=== PATIENT | female | born 1960 | race Caucasian/White ===

== ENCOUNTER → 2016-05-22 | Outpatient (CLI) | payer BC ==
[2016-05-22 16:45] VITALS: BP 143/80
== END ==
LOC: MHUC 13:45
PROVIDERS: ATTEND Physician Assistant
DX: R21 Rash and other nonspecific skin eruption (principal); K59.00 Constipation, unspecified
CPT/HCPCS: 99213

== ENCOUNTER → 2016-07-15 | Outpatient (CLI) | payer BC ==
[~2016-07-15] MED LIST: ACET325T38 PO; AMOX-358 PO; CETI10TA20 PO; CYCL5TAB11 PO; DULO30CA PO; IBP200T PO; IBUP-1772 PO; LEVO5TAB18 PO; MAG1CAPS4 PO; METO25TA60 PO; MUSCLE RELAXER; OMEP20TA PO; RANI150T15 PO; SMTR50T PO; VALA10004 PO; VERA120T78 PO; estrogen patch
[2016-07-15 09:35] VITALS: BP 131/78
--- NOTE | 2016-07-15 09:36 | Urgent Care T Sheet Gen (E) ---
Intake General Temperature (Fahrenheit): 98.3 Pulse: 99 Blood Pressure Systolic: 131 Blood Pressure Diastolic: 78 Respirations: 18 SPO2: 100 Chief Complaint: UC Ear/Nose/Throat Complaint Description of Symptoms Pt states sudden onset of symptoms yesterday. States she has facial pain and pressure. Pt states her throat is very sore. Pt states she has post nasal drip. States she has had chills, body aches, nausea. Believes she has had a fever at home. States she is coughing as a result of the post nasal drip. States she has had sinus surgery x 2. Source: Patient Exam Limitations: No limitations History of Present Illness Onset & Duration: Days (yesterday) Timing: Worse Severity: Moderate Modifying Factors: None Associated Symptoms: Cough, Fever/Chills, Headaches, Malaise, Nasal congestion , Nausea/vomiting, Sinus congestion Recent Trauma: No Similar Sympotms Previously: Yes Allergies: Coded Allergies: No Known Allergies (Verified Allergy, Unknown, 12/07/14) Home Meds Active Scripts Amoxicillin/Clavulanate Potassium (Augmentin 875mg/125mg)1 Each Tablet1 Each PO BID Infection #14 TAB Ref 0 Prov:LAZARO CAMEJO USER SUPPORT SPECIALIST 07/15/16 Sumatriptan Succinate (Imitrex)50 Mg [id number] Mg PO DAILY PRN HEADACHE #4 TAB Ref 3 Prov:LIZETT REED DO 09/28/14 Reported Medications [Muscle Relaxer] No Conflict Check Tid 09/28/14 Metoprolol Tartrate 25 Mg [id number] Mg PO DAILY 09/28/14 Mag Oxide/Vit D3/Tumeric Rt Xt (Magnesium-Vit D3-Turmeric Cap)1 Each Capsule1 Each PO DAILY 12/31/13 Ranitidine HCl (Zantac)150 Mg [id number] Mg PO DAILY 12/31/13 Omeprazole 20 Mg Tablet.dr20 Mg PO BID 12/31/13 Ibuprofen 600 Mg Eftjxn970 Mg PO TID 10/11/12 Cetirizine HCl (Zyrtec)10 Mg Xlncqy82 Mg PO DAILY 10/11/12 Duloxetine HCl (Cymbalta)30 Mg Capsule.dr30 Mg PO DAILY 09/22/11 Respiratory Constitutional Symptoms: Chills Fever Malaise EENTM: No Eye pain, No Blurred vision, No Eye tearing, No Ear pain, No Ear discharge, No Nose Pain, Nose CongestionNo Throat swelling, No Mouth Pain, No Mouth Swelling Respiratory: No Cough, No Short of breath, No Wheezing Cardiovascular: No Chest pain, No Edema, No Palpitations, No Syncope Gastrointestinal/Abdominal: No Abdominal pain, No Constipation, No Diarrhea, NauseaNo Vomiting Genitourinary: No No symptoms reported Musculoskeletal: Other (myalgias) Skin: No Rash Neurological: Headache (facial pain)No Numbness, No Paresthesia, No Seizure, No Tingling, No Tremors, No Weakness All Other Systems Reviewed Remaining Systems: All other systems reviewed with negative findings Past [id number] Hx Patient's Social History Recent foreign travel: No Surgeries/Hospitalizations Hospitalization/Surgery Hx: BACK SURGERY X2, , hysterectomy Respiratory Respiratory History: None Cardiovascular Cardiovascular History: None Comment: One episode, not sure it was chest or upper abd pain. Neuro/Muscular Neuro/Muscular History: Headache, Migraine, Back Problems Comment: History of back surgery. Reproductive System Sexually Transmitted Diseases: No Genitouinary Genitourinary History: None Gastrointestinal GI/Endocrine History: Other, see comment Comment: GASTROPARESIS Diabetes Diabetes: No HEENT Impaired Vision: None Hearing Impaired: None Integumentary Integumentary History: None Psychosocial Behavior Disorders: Depression, Sleep Difficulties Physical Exam Physical Exam General Appearance: WD/WN Mild distress (mildly ill appearing) Eyes, Ears, Nose, Throat Ex: PERRL/EOMI TMs normal Pharynx normal (TTP over frontal and maxillary sinuses, purulent nasal drainges in both nares, turbinates swollen, mucosa moderately inflamed)No Photophobia, Pharyngeal erythema (no exudate, airway patent)No Tonsillar exudate Neck Exam: Normal thyroid Lymphadenopathy (anterior cervical chain) Respiratory Exam: Chest non-tender Lungs clear Normal breath sounds No respiratory distress No accessory muscles used Cardiovascular Exam: Regular rate, rhythm No edema No gallop No JVD No murmur GI/ Exam: Non tender No organomegaly Normal bowel sounds No distention Rectal Exam: Non tender Back Exam: Normal Inspection No CVA tenderness No vertebral tenderness Skin Exam: Normal color Warm/dry/intact No rashes No embolic lesions Extremity Exam: Non-tender Full range of motion Normal capillary refill No pedal edema Neurologic/Psychiatric Exam: Oriented times 4 CN's II-X nml No motor deficits No sensory deficits Mood/affect nml Progress/Orders Lab Results Labs Results: Rapid Strep Departure Urgent Care Impression Chief Complaint: Ear/Nose/Throat Complaint Impression: Primary Impression: Sinusitis Additional Impression: Pharyngitis Departure Disposition: 01 HOME OR SELF-CARE Condition: Stable Referrals: CAMMIE STILL MD (PCP) Additional Instructions: Rapid Strep- NEGATIVE. Discussed with patient that given subjective fever and facial pain, will treat with antibiotics. Advised pt that she can use Afrin nasal spray 3x/day for a max of 3 days for sx relief. Discussed rebound congestion. Advised pt to use saline nasal irrigation BID. Advised to use Tylenol or Ibuprofen for analgesia. Discussed Augmentin and educated on adverse drug reactions. If worsening symptoms, symptoms persist, or any concerns return to care. Scripts Amoxicillin/Clavulanate Potassium (Augmentin 875mg/125mg)1 Each Tablet1 Each PO BID Infection #14 TAB Ref 0 Prov:LAZARO CAMEJO APRN 07/15/16 End of report . LAZARO CAMEJO APRN Jul 15, 2016 09:35
== END ==
LOC: MHUC 08:57
PROVIDERS: ATTEND Nurse Practitioner Family
DX: J32.9 Chronic sinusitis, unspecified (principal); J02.9 Acute pharyngitis, unspecified
CPT/HCPCS: 99213